=== PATIENT | male | born 1955 | race Caucasian/White ===

== ENCOUNTER 2021-07-31 17:33 | Emergency (ER) | payer OTHER, MEDICARE ==
[2021-07-31] MEDS ORDERED: MAG HYDROX/AL HYDROX/SIMETH 30 ML UNIT-DOSE CUP PO ONE (17:37)
[2021-07-31] MEDS ORDERED: LIDOCAINE VISCOUS 2% ORAL/TOP 100 ML BOTTLE MM ONE (17:37)
[2021-07-31 17:43] VITALS: BP 106/82; PULSE 86; TEMP 98; BMI 26.6
[2021-07-31] MEDS ORDERED: MAG HYDROX/AL HYDROX/SIMETH 30 ML UNIT-DOSE CUP ONE (17:48)
[2021-07-31] MEDS ORDERED: LIDOCAINE VISCOUS 2% ORAL/TOP 15 ML UNIT-DOSE CUP ONE (17:48)
[2021-07-31] MEDS ORDERED: GLUCAGON 1 MG KIT IVPUSH ONE (18:57)
[2021-07-31] MEDS ORDERED: FAMOTIDINE 20 MG/50 ML IVPB 20 MG in PREMIX 50 IVPB ONE (18:57)
[2021-07-31] MEDS ORDERED: ACETAMINOPHEN 1000 MG/100 ML BAG IVPB ONE (18:58)
[2021-07-31] MEDS ORDERED: ACETAMINOPHEN INJECTION 100 ML IVPB ONE (19:26)
[2021-07-31] MEDS ORDERED: FAMOTIDINE 20 MG/50 ML IVPB 20 MG/50 ML MG IVPB ONE (19:26)
[2021-07-31] MEDS ORDERED: GLUCAGON 1 MG KIT ONE (19:27)
== END 2021-07-31 19:52 | disposition left against medical advice (07) ==
LOC: FER 17:33
DX: R07.0 Pain in throat (principal)
CPT/HCPCS: 70360-TC-FY; 71046-TC-FY; 99284-25